=== PATIENT | male | born 1970 | race Two or more races ===

== ENCOUNTER 2018-07-27 15:20 | Outpatient (CLI) | payer OTHER ==
[~2018-07-27 15:20] MED LIST: ATIVAN1 M1; ATORVASTATIN CA20 MG; PRILOSEC2.5 MG; VASOTEC20 MG
== END 2018-07-27 15:26 | disposition home or self-care (01) ==
LOC: LAB 15:20
DX: D68.8 Other specified coagulation defects (principal)

== ENCOUNTER → 2018-08-03 | Day surgery (SDC) | payer OTHER | END | disposition home or self-care (01) | LOC: ADM 07-27 09:15 → CIR.AMB 08:49 | DX: G56.01 Carpal tunnel syndrome, right upper limb (principal) ==